=== PATIENT | male | born 1970 | race Caucasian/White ===

== ENCOUNTER 2018-03-11 09:16 | Day surgery (SDC) | payer OTHER, SELFPAY ==
[2018-02-16 14:14] VITALS: BMI 26.5
[2018-03-11] VITALS (10 sets, daily range): BP systolic 111–127; BP diastolic 71–85; PULSE 69–86; RESP 8–16; TEMP 35.9–36.3; O2SAT 91–98; BMI 26.5
[2018-03-11] MEDS: LACTATED RINGERS 1,000 ML 42 ML IV ×2 (09:47→11:30)
--- NOTE | 2018-03-11 10:08 | PM.HP.1 ---
History of Present Illness Date Patient Seen: 03/11/18 Time Patient Seen: 10:08 Chief complaint: [id number] Narrative: Pleasant 47-year-old gentleman that I met last month who has an incarcerated umbilical hernia. He presents today to undergo umbilical hernia repair. He denies any new problems with his health. He denies any change in the hernia itself. Patient History Medical History Umbilical hernia (Acute) Family & Social History Family History: Reviewed 03/11/18 by Vaishali Hoyos MD Social History: household members spouse Tobacco & Substance use: Tobacco type smokeless tobacco Smoking Status Never smoker Meds Home Medications Medication Instructions Recorded Confirmed Type No Known Home Medications 03/11/18 03/11/18 History Allergies Allergy/AdvReac Type Severity Reaction Status Date / Time No Known Drug Allergies Allergy Unverified 03/11/18 09:52 Review of Systems Review of Systems All systems reviewed & are unremarkable except as noted in HPI and below Exam Vital Signs (past 8 hours): - 03/11/18 09:36 Temperature 97.4 F L Pulse Rate 86 Respiratory Rate 16 Blood Pressure 115/71 Pulse Oximetry 98 Oxygen Delivery Method Room Air Narrative Exam Narrative: Very pleasant gentleman in no obvious distress HEENT: Normocephalic and atraumatic, pupils equal round reactive to light accommodation with anicteric sclera Lungs: Clear to auscultation bilaterally Heart: Regular rate and rhythm without murmur rub or gallop Abdomen: Soft, tender to palpation at the umbilicus where there is an obviously incarcerated umbilical hernia. Otherwise nontender with active bowel sounds. Well-healed inguinal incision from prior hernia repair without palpable recurrence Extremities: Warm and well perfused and without edema. Assessment & Plan Plan: Assessment/Plan Narrative: Very pleasant gentleman who is remarkably healthy. He presents for umbilical hernia repair. We discussed the risks and benefits of the procedure and the patient expressed desire to complete it.
[2018-03-11] MEDS: CEFAZOLIN 2 GM/100 ML FROZ.PIGGY IV (10:25)
--- NOTE | 2018-03-11 10:41 | SUR.OPER ---
Supine on padded OR bed, head on pillow, arms secured on padded arm boards at <90 degrees abduction, legs uncrossed, safety belt at thigh, tape over blanket over lower legs.
[2018-03-11] MEDS: SODIUM CHLORIDE IRRIG SOLUTION 1,000 ML, CEFAZOLIN VIAL 1 GM IRR (10:51)
[2018-03-11] MEDS: LIDOCAINE 1% W/EPI INJ 20 ML INJ (10:51)
[2018-03-11] MEDS: BUPIVACAINE 0.5% (PF) VIAL 30 ML INJ (10:51)
--- NOTE | 2018-03-11 11:25 | PM.OP.1 ---
Operative Date/Time/Diagnoses Date of procedure: 03/11/18 Time of procedure: 11:25 Pre-op diagnosis: Umbilical hernia Post-op diagnosis: other (1. Incarcerated umbilical hernia; 2. Incarcerated ventral hernia) Procedure & Clinicians Procedure: Repair of incarcerated umbilical hernia and repair of incarcerated ventral hernia Same procedure as scheduled: No (Additional hernia identified) Surgeon: Vaishali Hoyos Click Yes if Unassisted: Yes Anesthesia Type: General (Goetter) and Local Operative Notes Findings: 1. 1.5 cm incarcerated umbilical hernia containing preperitoneal fat 2. 1.5 cm incarcerated ventral hernia 3 cm proximal to the umbilical site containing preperitoneal fat Closure Type: primary Specimen(s): none sent Implants & Drains: 8 cm C cur mesh implant Estimated Blood Loss (mL): 10 Blood products transfused: none Procedure in detail: After obtaining informed consent, the patient brought to the operating room and placed in the supine position on the operating table. Following successful induction of general endotracheal anesthesia, appropriate padding of all bony prominences, and placed on appropriate monitors, the abdomen is prepped and draped in the standard surgical fashion. A time-out was held per [facility] protocol. Following infiltration with local anesthetic create a field block, an incision was created directly through the umbilicus and carried down through the skin and subcutaneous tissue. The hernia sac was immediately identified. It was carefully dissected free from the overlying dermis of the umbilicus and allowed to retract back into the abdominal cavity. In palpating the abdominal fascia, a 2nd fatty mass was appreciated 3 cm superior to the umbilicus. This was investigated further and found to be preperitoneal fat incarcerated in a 2nd 1.5 cm ventral hernia. This fat was liberated revealing the edges of the fascia. The abdomen was irrigated with warm saline solution and checked for hemostasis. The omentum was placed over the bowel contents in the peritoneal cavity. Multiple holes in the peritoneum were present and I was not able to close all of them. A 8 cm portion of C cur mesh was placed in the umbilical defect and superiorly in the preperitoneal space. Inferiorly, it was difficult to cover the entire mesh with preperitoneal tissue but all of the edges were sufficiently covered. Once the mesh was in place, the 2nd ventral hernia was checked to be sure that the mesh covered this defect. It was then closed with a Vicryl suture to reapproximate the fascia in this region. The tails of the C cur mesh were then secured to the abdominal fascia with interrupted sutures. The wound was checked for hemostasis and irrigated with Ancef containing solution. The belly button was reconstructed by sewing the dermis of the umbilical skin to the underlying fascia. The skin was then closed in layers with Vicryl and Monocryl suture. All sponge, needle, and instrument counts were correct at the conclusion of the case. The patient was allowed awaken from anesthesia without difficulty and taken to the post anesthesia care unit in good condition. Complications: none Condition: stable Disposition: PACU Plan for aftercare: 1. Discharge to home 2. Follow up with me in 2 weeks
[2018-03-11] MEDS: KETOROLAC 30 MG/ML VIAL IV (11:36)
[2018-03-11] MEDS: OXYCODONE/ACETAMINOPHEN 5/325 TABLET 1 TAB PO (11:52)
== END 2018-03-11 12:40 | disposition home or self-care (01) ==
PROVIDERS: Visit Provider Surgery
PROC: (CPT 49587; principal; 2018-03-11 10:15)
DX: K42.0 Umbilical hernia with obstruction, without gangrene (principal); K43.6 Other and unspecified ventral hernia with obstruction, without gangrene; K21.9 Gastro-esophageal reflux disease without esophagitis; F17.220 Nicotine dependence, chewing tobacco, uncomplicated
CPT/HCPCS: 49587; 49561; C1781; J0690; J1100; J1885; J2250; J2405; J2704; J3010